=== PATIENT | male | born 1935 | race Caucasian/White ===

== ENCOUNTER 2017-06-02 20:37 | Observation (INO) | payer MEDICARE ==
[~2017-06-02] VITALS: Ht 182.9 cm; Wt 79.5 kg
[~2017-06-02 20:37] MED LIST: ACET325T51 PO; ACYC400T2 PO; CALC600T12 PO; CHOL500011 PO; LEVO500T79 PO; LORA10CA PO; Lactated Ringer's 1,000 ML IV ONE; POLY17PO6 PO; PREG75CA PO; PSYL1CAP3 PO
[2017-06-02 20:51] VITALS: BP 126/75; PULSE 72; RESP 18; O2SAT 100
[2017-06-02 21:53] LABS: BASOPHILS % (AUTO) 2.4 % (0-3); EOSINOPHILS % (AUTO) 0.8 % (0-5); MONOCYTES % (AUTO) 15.5 % (4-12); NEUTROPHILS % (AUTO) 46.8 % (40-74)
--- NOTE | 2017-06-02 21:53 | ED.REPORT ---
HPI-Abd Pain M 40 and Over Date of Service Jun 02, 2017 ED Provider: Marcel Herrera DO Patient is an 82 year old male with a history of myelodysplastic syndrome who presents to the ED reporting that his inguinal hernia popped out at 2000 this evening. Associated symptoms include nausea and vomiting. The patient reports that he has been dealing with this for months and he is normally able to push the hernia back in but was unable to tonight. Patient receives regular blood transfusions due to his myelodysplastic syndrome. Nursing Notes Stated Complaint: ABDOMINAL PAIN, VOMITING, HERNIA OUT Chief Complaint: Male Abdominal Pain Nursing Notes Reviewed: Yes Allergies: Coded Allergies: No Known Allergies (Verified Allergy, Unknown, 06/02/17) Uncoded Allergies: Environmental allergies (Allergy, Mild, 06/14/08) Scheduled Acyclovir (Acyclovir) 400 Mg Tablet 400 MG PO BID Calcium Carbonate (Calcium) 600 Mg Tablet 600 MG PO DAILY Cholecalciferol (Vitamin D3) (Vitamin D3) 5,000 Unit Tablet 5,400 UNIT PO DAILY Levofloxacin (Levofloxacin) 500 Mg Tablet 500 MG PO DAILY Loratadine (Claritin) 10 Mg Capsule 10 MG PO DAILY Pregabalin (Lyrica) 75 Mg Capsule 75 MG PO BID Scheduled PRN Acetaminophen (Acetaminophen) 325 Mg Tablet 325 MG PO Q4H PRN PRN For Pain Polyethylene Glycol 3350 (Miralax) 17 Gm Powd.pack 17 GM PO PRN PRN PRN For Constipation Psyllium Husk/Ca Carbonate (Metamucil Plus Calcium Capsule) 1 Each Capsule 1 EACH PO DAILY PRN PRN For Constipation General Time Seen by MD: 21:52 Chief Complaint Inguinal pain right Hx Obtained From: Patient Arrived By: Walk-in Sudden in Onset?: Yes Onset Occurred: 1 - 4 hours ago Symptom Duration: Since onset Quality: Painful Radiation: : Inguinal right Severity: Current: Pain level 8 out of 10 Similar Sx Previous: Yes Past Medical History Past Medical History myelodysplastic syndrome Smoking History Unknown if Ever Smoker Social History Other Social History: Good social support Ambulatory Status Independent Review of Systems Constitutional: Denies: Chills, Fever Respiratory: Denies: Non-productive cough, Shortness of breath GI: Reports: Abdominal pain, Nausea, Vomiting Complete sys rev & neg: except as marked. Skin: Denies Itching, Denies Rash Physical Exam Initial Vital Signs Vital Signs (First) Date Time Temp Pulse Resp B/P Pulse Ox O2 Delivery O2 Flow Rate FiO2 06/02/17 20:51 37.1 72 18 126/75 100 Room Air Initial VS: Reviewed General/Constitutional: Awake, Alert Distress / Hydration: Positive: Distress moderate actively retching Respiratory / Chest: Atraumatic, Breath sounds NL, Breath sounds = bilat, No respiratory distress Cardiovascular: Heart rate NL, Regular rhythm, Heart sounds NL Abdomen: Atraumatic, Soft Organomegaly / Mass / Hernia: Positive: Hernia inguinal R, Hernia is incarcerated, Hernia is strangulated, Hernia is tender, Hernia not reducible Back: Atraumatic, No CVA tenderness Head / Eyes: Atraumatic, Normocephalic, PERRL, EOMI Skin: Atraumatic, Color NL, No rash, Warm, Dry Neurologic: Oriented X3, Speech NL, No motor deficits, No sensory deficits Upper Extremity / MS: Atraumatic, Inspection NL Lower Extremity / Pelvis / MS: Atraumatic, Inspection NL Psychiatric: Affect NL, Mood NL Interpretation & Diagnostics Lab Results Interpretation Result Diagram: 06/02/17211706/02/172117 Test 06/02/17 21:18 White Blood Count 2.5th/mm3 (3.8-10.1) Red Blood Count 2.46mil/mm3 (4.40-5.80) Hemoglobin 8.7g/dL (13.8-17.2) Hematocrit 25.7% (41.0-50.0) Mean Corpuscular Volume 104.5fL (81-100) Mean Corpuscular Hemoglobin 35.4pg (27.0-35.0) Mean Corpuscular Hemoglobin Concent 33.9% (32.0-37.0) Red Cell Distribution Width 27.6% (12.3-15.4) Platelet Count 34bil/L (150-400) Neutrophils (%) (Auto) 46.8% (40-74) Lymphocytes (%) (Auto) 33.3% (14-46) Monocytes (%) (Auto) 15.5% (4-12) Eosinophils (%) (Auto) 0.8% (0-5) Basophils (%) (Auto) 2.4% (0-3) Sodium Level 140mEq/L (134-144) Potassium Level 4.2mEq/L (3.5-5.2) Chloride Level 102mEq/L (97-108) Carbon Dioxide Level 24mmol/L (18-29) Blood Urea Nitrogen 19mg/dL (8-27) Creatinine 0.91mg/dL (0.76-1.27) Estimat Glomerular Filtration Rate 85mL/min (>59) Glucose Level 138mg/dL (60-99) Lactic Acid Level 1.8mmol/L (0.4-2.0) Calcium Level 8.5mg/dL (8.5-10.1) Magnesium Level 2.0mg/dL (1.6-2.6) Total Bilirubin 1.2mg/dL (0.0-1.2) Aspartate Amino Transf (AST/SGOT) 13U/L (0-50) Alanine Aminotransferase (ALT/SGPT) 9U/L (0-44) Alkaline Phosphatase 94U/L (25-160) Total Protein 5.8g/dL (6.4-8.4) Albumin 3.7g/dL (3.4-5.0) Lipase 26U/L (13-60) Hold Garrison Top Tube Received (Received) CT Abd / Pelvis Interpretation Conclusion: 1. 6.5cm right inguinal hernia contains fluids and loops of small bowel. Strangulation is not excluded. No small bowel obstruction. 2. 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 at 0004 Interpretation / Wet Read by: Interpret - Radiologist Re-Eval/Medical Decision Med Decision/Clinical Course 82-year-old male presents with subacute abdominal pain associated with an incarcerated right inguinal hernia. Hernia spelled out for at least 3-4 hours. He has vomiting and rather extreme pain. On examination he was in moderate distress and actively vomiting. His exam was otherwise nonfocal aside from the right inguinal region. He had a very firm and tender inguinal hernia. We medicated with Dilaudid light him flat. Closed reduction attempts were unsuccessful. Surgical consultation obtained. Plan for the OR for definitive management. Mr. yan does have pancytopenia. He will be transfused platelets to get his platelet count 50,000. The operating room. He has been typed and crossmatched as well. 4 units of blood are available as needed. Time of Eval: 22:35 Re-Evaluation/Progress Note: Patient's hernia was non reducable. Plan for CT and admit to surgery. Patient understands and agrees to plan. All questions were addressed. Consultation : Referral / Consult Name: Isha Monique MD Consulted With: Surgeon Call Returned at: 22:43 Sr Vice President: Will see patient, Agrees with eval, Agrees with plan, Accepts admit Counseled Regarding: Diagnosis, Lab results, Need for admission Discharge & Departure Primary Impression: Incarcerated right inguinal hernia Additional Impression: Pancytopenia Disposition: ADMITTED TO HOSPITAL Vital Signs - All Vital Signs Date Time Temp Pulse Resp B/P Pulse Ox O2 Delivery O2 Flow Rate FiO2 06/02/17 23:50 77 17 140/49 93 Room Air 06/02/17 20:51 37.1 72 18 126/75 100 Room Air )( All Prior VS Reviewed: Yes Condition: Stable Referrals: Parker Shah MD (PCP) Scribe Attestation Portions of this note were transcribed by Adelina Leon. I, Dr. Herrera personally performed the history, physical exam and medical decision-making; I reviewed and confirmed the accuracy of the information in the transcribed note. Signed by: La Correa, 06/02/17 copies to: Parker Shah MD, Todd P DO Jun 02, 2017 21:53 Denice Leon Jun 02, 2017 22:03
[2017-06-02 21:57] LABS: Mean Corpuscular Hemoglobin 35.4 pg (27.0-35.0); Mean Corpuscular Volume 104.5 fL (81-100)
[2017-06-02 22:00] LABS: Platelet Count 34 bil/L (150-400)
[2017-06-02] MEDS ORDERED: HYDROmorphone 0.5 mg/0.5 mL iSecure Syringe IVPUSH ONE ×2 (22:00→23:10)
[2017-06-02] MEDS: Ondansetron 2 mg/mL 2 mL Inj IVPUSH PRN ×2 (22:17→22:44)
[2017-06-02] MEDS ORDERED: HYDROmorphone 1 mg/mL Inj IVPUSH ONE (22:40)
--- NOTE | 2017-06-02 23:38 | PCM.HPANE ---
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), Denies:: Abnormal Airway, Anesthesia Reactions, Difficult Intubation, Fam Malignant Hypertherm, Malignant Hyperthermia Diabetes History Hx Diabetes?: No MRSA MRSA: No Medications Hypertension Medication: No Home Meds Incl Beta Afshin: No Reported Medications Levofloxacin 500 Mg [id number] Mg PO DAILY 04/02/17 Loratadine (Claritin)10 Mg [id number] Mg PO DAILY Ref 0 02/01/17 Pregabalin (Lyrica)75 Mg Lecnzjm59 Mg PO BID 30 Days Ref 0 11/13/16 Psyllium Husk/Ca Carbonate (Metamucil Plus Calcium Capsule)1 Each Capsule1 Each PO DAILY PRN For Constipation 09/07/16 Acetaminophen 325 Mg Lfqigv558 Mg PO Q4H PRN For Pain Ref 0 05/22/16 Cholecalciferol (Vitamin D3) (Vitamin D3)5,000 Unit Tablet5,400 Unit PO DAILY 08/06/15 Calcium Carbonate (Calcium)600 Mg Zyjxac259 Mg PO DAILY 08/06/15 Polyethylene Glycol 3350 (Miralax)17 Gm Powd.pack17 Gm PO PRN PRN For Constipation 05/16/14 Acyclovir 400 Mg Anctys266 Mg PO BID Ref 0 05/16/14 History History of ENT Problems?: No HEENT History: Positive for:: Hearing Problem (NO AIDS "YET") Denies:: Abnormal Airway Difficult Intubation Dysphagia Denture Type: None Teeth Condition: Broken Teeth (several chipped teeth) Hx of Heart Problems?: Yes Cardiovascular History: Denies:: Chest Pain Congestive Heart Failure Hypertension Irregular Heartbeat Pacemaker Valvular Heart Disease Hx of Respiratory Problem?: Yes Respiratory History: Positive for:: Asthma (CHILDHOOD ASTHMA, OCCASIONAL MINOR PROBLEM) Use of C-PAP Machine (has PIERO but doesn't use CPAP) Denies:: COPD Cough Hemoptysis Pneumonia Tuberculosis Hx Neurologic Problems?: Yes Neurological History: Positive for:: Peripheral Neuropathy (numbness in hands and feet) Denies:: CVA TIA Hx of GI Problems?: Yes (strangulated inguinal hernia, nausea/vomiting) Gastrointestinal History: Denies:: Gastroesphageal Reflux Heartburn Hx of Problems?: No Male Hx: Positive for:: Prostate Problems (PROSTATE CA=CURRENT PROBLEM) Denies:: Scrotal Mass Testicular Surgery Skin History: Denies:: History Skin Disorders? Pressure Ulcers Hx Musculoskeletal Problems?: No Musculoskeletal History: Denies:: Joint Replacement Hx of Psycho/Social Problems?: No Psycho Social History: Denies:: Anxiety Hx Depression Hx Surgeries?: Yes (HERNIA REPAIRX2, APPY, TONSIL/ ADDENOIDS) Hx Any Other Health Problems?: Yes Other History: Denies:: Cancer Endocrine Disease Hospitalization Thyroid Disease History Blood Transfusions: Positive for:: Blood Transfusions (s/p regular transfusions for myelodysplastic syndrome) Denies:: Blood Transfuse Reaction Hx Diabetes: No Hx Alcohol Use: NoHx Substance Use: No Smoking Status: Unknown if Ever Smoker Have You Smoked inLast 12 mo: No Stop/Bang Treated for Sleep Apnea?: Yes Do You Have a CPAP Machine?: Yes PIERO Category 1: Yes (1b) Risk Assessment Category Category 1A: Patient has history of documented sleep apnea, and HAS NOT received any narcotic, sedative or anesthesia administration during this stay. Category 1B: Patient has history of documented sleep apnea, and HAS received any narcotic , sedative or anesthesia administration during this stay Category 2: Patient has SUSPECTED Obstructive Sleep Apnea, and HAS received any narcotic , sedative or anesthesia administration during this stay. Category 3: Patient has SUSPECTED Obstructive Sleep Apnea and HAS NOT received narcotic, sedative or anesthesia administration during this stay. Category 4: Outpatient in Procedural Areas with known sleep apnea or who screen positive for High Risk via the STOP/BANG questionnaire. Exam Exam Vital Signs Vital Signs Date Time Temp Pulse Resp B/P Pulse Ox O2 Delivery O2 Flow Rate FiO2 06/02/17 20:51 37.1 72 18 126/75 100 Room Air General Appearance: Alert, Oriented X3, Cooperative, No Acute Distress HEENT/AIRWAY: MP 2, Neck Movement (from, tmd > 3 fb) Lungs: Clear to Auscultation, Normal Air Movement Heart: Exam Unremarkable, Regular Rate/Rhythm, No Murmurs/Rubs/Gallops Meds/Labs/Diagnostics Admission Meds Current Medications Hydromorphone HCl (Dilaudid Inj) 0.5 mg ONCE ONCE IVPUSH Last administered on 06/02/17 22:17; Start 06/02/17 at 22:00; Stop 06/02/17 at 22:01; Status DC Hydromorphone HCl (Dilaudid Inj) 1 mg ONCE ONCE IVPUSH Last administered on 22:44; Start 06/02/17 at 22:40; Stop 06/02/17 at 22:41; Status DC Hydromorphone HCl (Dilaudid Inj) 0.5 mg ONCE ONCE IVPUSH Last administered on 06/02/17 23:10; Start 06/02/17 at 23:10; Stop 06/02/17 at 23:11; Status DC Labs Test 06/02/17 21:18 White Blood Count 2.5th/mm3 (3.8-10.1) Red Blood Count 2.46mil/mm3 (4.40-5.80) Hemoglobin 8.7g/dL (13.8-17.2) Hematocrit 25.7% (41.0-50.0) Mean Corpuscular Volume 104.5fL (81-100) Mean Corpuscular Hemoglobin 35.4pg (27.0-35.0) Mean Corpuscular Hemoglobin Concent 33.9% (32.0-37.0) Red Cell Distribution Width 27.6% (12.3-15.4) Platelet Count 34bil/L (150-400) Neutrophils (%) (Auto) 46.8% (40-74) Lymphocytes (%) (Auto) 33.3% (14-46) Monocytes (%) (Auto) 15.5% (4-12) Eosinophils (%) (Auto) 0.8% (0-5) Basophils (%) (Auto) 2.4% (0-3) Sodium Level 140mEq/L (134-144) Potassium Level 4.2mEq/L (3.5-5.2) Chloride Level 102mEq/L (97-108) Carbon Dioxide Level 24mmol/L (18-29) Blood Urea Nitrogen 19mg/dL (8-27) Creatinine 0.91mg/dL (0.76-1.27) Estimat Glomerular Filtration Rate 85mL/min (>59) Glucose Level 138mg/dL (60-99) Lactic Acid Level 1.8mmol/L (0.4-2.0) Calcium Level 8.5mg/dL (8.5-10.1) Magnesium Level 2.0mg/dL (1.6-2.6) Total Bilirubin 1.2mg/dL (0.0-1.2) Aspartate Amino Transf (AST/SGOT) 13U/L (0-50) Alanine Aminotransferase (ALT/SGPT) 9U/L (0-44) Alkaline Phosphatase 94U/L (25-160) Total Protein 5.8g/dL (6.4-8.4) Albumin 3.7g/dL (3.4-5.0) Lipase 26U/L (13-60) Hold Garrison Top Tube Received (Received) Plan Impression Patient chart reviewed, patient interviewed and anesthestic plan with risks, benefits, and alternatives discussed, and informed consent obtained. NPO per Anesth. Guidelines: Yes (last ate at 1700; but with some obstructive symptoms ) ASA Physical Status: ASA2 Plus Emergency Anesthetic Plan: GA Bene/Risks/Altern/Consents: Yes HP Complete Prior to Induction: Yes Other 1 dose of platelets transfusing on arrival to OR. Erasmo Max MD Jun 02, 2017 23:38
[2017-06-02 23:50] VITALS: BP 140/49; PULSE 77; RESP 17; O2SAT 93
[2017-06-02] MEDS ORDERED: 0.9% Sodium Chloride 250 ML IV ONE (23:50)
[2017-06-03] VITALS (12 sets, daily range): BP systolic 109–167; BP diastolic 45–91; PULSE 65–78; RESP 7–22; O2SAT 94–100
--- NOTE | 2017-06-03 00:27 | CONS ---
[address] [address] CONSULTATION REPORT PATIENT: SCOTT HILL : 1935 MR#: [id number] ADMIT: 06/02/2017 JOB ID: [id number] DATE OF SERVICE: 06/02/2017 CHIEF COMPLAINT: An 82-year-old gentleman with incarcerated right inguinal hernia seen at the request of Marcel Herrera DO. HISTORY OF PRESENT ILLNESS: The patient is an 82-year-old gentleman who has had an umbilical hernia repair and left inguinal hernia repair by Dr. Daljit Sutherland in the past. He has known that he has a right inguinal hernia for the past few months, but he was able to always push it in. With his myelodysplastic syndrome, he has not had much energy of late and he mostly just gets up to the chair. This morning, he was able to have his breakfast. After that, he had some abdominal pain, but then around lunch he had some soup and he seemed to get better. Then, he started having worsening abdominal pain and started throwing up around eight o'clock tonight, and he figured out that his hernia is hard and painful and he is not able to push it back in, prompting him to come into the emergency department. He was given some Dilaudid and the emergency department physicians tried to reduce him by putting his head down and with manual pressure, but they were unable to, and I was asked to see him in consultation. OTHER MEDICAL PROBLEMS: 1. Prostate cancer, treated with implantable radiation seeds. 2. Myelodysplastic syndrome, currently treated by Dr. Alcantara, associated with pancytopenia, especially thrombocytopenia. 3. Obesity. PRIOR OPERATIONS: 1. Left inguinal hernia repair. 2. Umbilical hernia repair. SOCIAL HISTORY: He never smoked. He is here with his and daughter. REVIEW OF SYSTEMS: Positive for nausea and vomiting, neuropathy, weakness, in addition to the abdominal pain. LABORATORY INVESTIGATIONS: WBC 2.5, hemoglobin 8.7, platelet count 34. Glucose 138, lactate 1.8. Normal LFTs. Albumin 3.7, lipase 26. Creatinine 0.91. CT abdomen and pelvis performed June 02, 2017, showed incarcerated small bowel within the right inguinal hernia with enhancing bowel within the hernia. He also has bowel obstruction with a transition point in the incarcerated right inguinal hernia. PHYSICAL EXAMINATION: An 82-year-old gentleman with mild distress. BMI 23.8, temperature 37.1, pulse 72, respiratory rate 18, blood pressure 126/75, saturating 100% on room air. Eyes: Normal pupils, conjunctivae. Ears, nose and throat: Normal external appearance. Neck: No adenopathy. Respiratory: Normal effort, clear to auscultation. Cardiovascular: Regular rate and rhythm. Gastrointestinal: Abdomen is soft with incarcerated right inguinal hernia. I did not attempt to reduce it with him awake given the tenderness and earlier attempts already done in the emergency department. Genitourinary: Normal penile and scrotal complex. Neurologic: No gross deficits. Psych: Alert, appropriate. Musculoskeletal: Normal strength in extremities. ASSESSMENT AND PLAN: Incarcerated right inguinal hernia. We discussed the pathophysiology and treatment rationale for hernias. He could have incarcerated or potentially strangulated bowel. I recommended going to the operating room and attempting reduction under anesthesia. If I am able to reduce it, I will try to watch him and perform a semi-elective repair on his hernia, but if I am not able to reduce it I am going to proceed with an open repair of right inguinal hernia with possible bowel resection as indicated tonight. Discussed the risks, benefits and alternatives, and he and his understand and wish to proceed.
[2017-06-03] MEDS: Piperacillin-Tazo 3.375 Gm Inj 3.375 GM in Dextrose 5% Minibag Plus 50 ML IV ONE ×2 (00:49→01:27)
[2017-06-03] MEDS ORDERED: EPHEDrine Sulfate 50 mg/mL Inj IVPUSH PRN (00:55)
[2017-06-03] MEDS ORDERED: Albuterol 2.5 mg/3 mL Inhalation Solution NEB PRN (00:55)
[2017-06-03] MEDS ORDERED: HYDROmorphone 1 mg/mL Inj IVPUSH PRN (00:55)
[2017-06-03] MEDS ORDERED: Lactated Ringer's 500 ML IV PRN (00:55)
[2017-06-03] MEDS ORDERED: MetoCLOpramide 5 mg/mL 2 mL Inj IVPUSH PRN ×2 (00:55)
[2017-06-03] MEDS ORDERED: Phenylephrine 10,000 mCg/mL Inj IVPUSH PRN (00:55)
[2017-06-03] MEDS ORDERED: fentaNYL-PF 50 mCg/mL 2 mL Inj IVPUSH PRN (00:55)
[2017-06-03] MEDS ORDERED: Dexamethasone 4 mg/mL Inj IVPUSH PRN (00:55)
[2017-06-03] MEDS ORDERED: Lactated Ringer's 1,000 ML IV SCH (00:55)
[2017-06-03] MEDS ORDERED: hydrALAZINE 20 mg/mL Inj IVPUSH PRN (00:55)
[2017-06-03] MEDS ORDERED: Ondansetron 2 mg/mL 2 mL Inj IVPUSH PRN ×2 (00:55)
[2017-06-03] MEDS ORDERED: Atropine 0.4 mg/mL Inj IVPUSH PRN (00:55)
[2017-06-03] MEDS ORDERED: Labetalol 5 mg/mL 4 mL Inj IV PRN (00:55)
[2017-06-03] MEDS ORDERED: Polyethylene Glycol (PEG) 17 Gm Powder PO PRN (00:55)
--- NOTE | 2017-06-03 00:58 | PCM.SURGPO ---
Immediate Operative Note Date of Surgery: Jun 03, 2017 Pre Operative Diagnosis Incarcerated Right Inguinal Hernia Post Operative Diagnosis Incarcerated Right Inguinal Hernia Procedure Manual Reduction of Incarcerated Hernia Surgeon and Packaging Inspector Surgeon: Isha Monique MD Assistants: None Findings Reduced without difficulty once under anesthesia Complications There were no periprocedural complications identified. Surgical Specimen Removed: No Specimen sent to Pathology: No Anesthetic Administered: GA Grafts, Implants: None Output, Estimated Blood Loss: 0 Blood Admin during surgery: No Isha Monique MD Jun 03, 2017 00:58
--- NOTE | 2017-06-03 01:19 | OP ---
[address] [address] OPERATIVE REPORT PATIENT: SCOTT HILL : 1935 MR#: [id number] ADMIT: 06/02/2017 JOB ID: [id number] DATE OF SURGERY: 06/03/2017 SURGEON: Isha Monique MD. PREOPERATIVE DIAGNOSIS(ES): Incarcerated right inguinal hernia. POSTOPERATIVE DIAGNOSIS(ES): Incarcerated right inguinal hernia. PROCEDURE PERFORMED: Manual reduction of right inguinal hernia under anesthesia. COMPLICATIONS: None. CONDITION OF THE PATIENT: Stable. INDICATIONS: The patient is an 82-year-old gentleman with myelodysplastic syndrome and pancytopenias, who came in with incarcerated right inguinal hernia today. He was hemodynamically okay and manual reduction attempted by the emergency department physicians were not successful. After discussing the risks, benefits and alternatives, he was brought to the operating room with a plan to try manual reduction under anesthesia, and if not successful, proceed with an open repair of the hernia with possible bowel resection if indicated. PROCEDURE DETAILS: After smooth induction of general anesthesia, we put him in steep Trendelenburg position, and gentle pressure over the hernia to reduce the edema in the hernia was immediately successful, and I was able to reduce the hernia completely. At this point, we terminated the procedure with plans to observe him in the hospital overnight and advance his diet with plans to electively repair the hernia within the next week.
[2017-06-03] MEDS ORDERED: HYDROmorphone 0.5 mg/0.5 mL iSecure Syringe IVPUSH ONE (01:20)
--- NOTE | 2017-06-03 01:47 | PCM.ANEP1 ---
Post Anesthesia PACU Phase 1 Assessment Date of Service: Jun 03, 2017 Vital Signs Vital Signs Date Time Temp Pulse Resp B/P Pulse Ox O2 Delivery O2 Flow Rate FiO2 06/03/17 01:30 36.6 73 19 132/63 99 Room Air 06/03/17 01:25 72 14 140/67 100 Room Air 06/03/17 01:23 37.1 78 15 162/70 94 Room Air 06/03/17 01:20 73 22 120/65 100 Simple Mask 10 06/03/17 01:15 76 7 119/54 100 Simple Mask 10 06/03/17 01:10 71 7 109/49 100 Simple Mask 10 06/03/17 01:07 36.1 71 7 112/45 100 Simple Mask 10 06/03/17 00:05 37.1 78 15 06/02/17 23:50 77 17 140/49 93 Room Air 06/02/17 20:51 37.1 72 18 126/75 100 Room Air Anesthetic Administered: GA Level of Alertness: Awake, talking QIU's with Equal Strength: Yes Pain: No Pain Scale Score: 0 Nausea or Vomiting: No CV Function & Hydration Stable: Yes Airway Device: none Oxygen Delivery: Room Air Lungs: Clear to Auscultation, Normal Air Movement Dermatome Level: Full Sensation PACU Phase 2 Assessment Complications: No Follow up Care: No Patient Instructions Provided: N/A Erasmo Max MD Jun 03, 2017 01:47
[2017-06-03 02:45] LABS: APPEARANCE,URINE CLEAR (CLEAR,HAZY); COLOR,URINE DARK YELLOW (YELLOW); OCCULT BLOOD,URINE SMALL (NEGATIVE); UROBILINOGEN,URINE NORMAL (NORMAL)
--- NOTE | 2017-06-03 02:57 | NUR ---
Post op Patient arrived to floor from Pacu at 0140. Patient A&OX3. Vitals stable. and daughter by bedside. Patient states he is in no pain and feeling much better than he was previously. Patient denies N/V. Zosyn infusing through peripheral IV. Report given by Crystal LEARY. Care continues.
[2017-06-03] MEDS ORDERED: levoFLOXacin 500 mg Tablet PO SCH (08:30)
[2017-06-03] MEDS ORDERED: Acyclovir 400 mg Tablet PO SCH (08:30)
[2017-06-03] MEDS ORDERED: Calcium Carbonate (Oyster Shell) 500 mg Tablet PO SCH (08:30)
--- NOTE | 2017-06-03 08:36 | DRSVH ---
PROCEDURE: CT ABDOMEN AND PELVIS WITH CONTRAST ([id number]) INDICATIONS: hernia pain TECHNIQUE: After the administration of intravenous contrast, 5 mm thick sections acquired from the diaphragm to the symphysis. 5 mm coronal and sagittal reformats were acquired. For radiation dose reduction, the following was used: automated exposure control, adjustment of mA and/or kV according to patient siz e. COMPARISON: [facility] [place] , CT, ABD/PELVIS W&WO CON ([facility] 07/14/2011, 8:28. FINDINGS: Image quality: Excellent. ABDOMEN: Lung bases: Lung bases are clear. Heart size is normal. There is a small hiatal hernia Solid organs: Liver and spleen are normal in size and enhancement. Gallbladder is within normal james its. Biliary system is non dilated. Pancreas enhances normally. No adrenal nodules. Kidneys demon strate normal size and enhancement, without hydronephrosis. Bilateral parapelvic cysts are present. Peritoneum and bowel: Bowel loops demonstrate normal wall thickness and caliber except within the ri ght inguinal hernia.. No free fluid or air. Nodes and vessels: No retroperitoneal or mesenteric adenopathy by size criteria. Aorta and inferior vena cava are normal in size. Atherosclerotic calcifications are present. No aneurysm. The right ext ernal iliac artery shows dissection with active flow in both channels. This is approximately 4-5 cm i n length beyond the bifurcation of the common iliac and ending prior to the common femoral artery. Miscellaneous: No ventral hernias. PELVIS: Genitourinary: Bladder wall thickness is normal. Prostate is mildly enlarged with multiple seeds wi thin it. Miscellaneous: There is a right inguinal hernia with a bowel loop within it. No evidence for obstruct ion of the loops entering or exiting there is slight prominence of the loops within. There is a gener ous amount of fluid within the hernia sac as well. Bones: No suspicious bony lesions. No vertebral body compression fractures. IMPRESSION: 1. Right inguinal hernia with prominent small bowel loops and fluid within it. Loops within the herni a sac are slightly larger than those entering and exiting early ischemic change cannot be excluded. N o obstruction is seen. 2. Multiple prostate seeds. No adenopathy was bony sclerotic lesions are seen. 3. Splenomegaly with spleen measuring approximately 15.6 cm in length. 4. Right external iliac artery dissection. Dictated by: Shawn Maria M.D. on 06/03/2017 at 8:14 this report corresponds to the findings of e preliminary NSR report. Approved by: Shawn Maria M.D. on 06/03/2017 at 8:35
--- NOTE | 2017-06-03 11:57 | NUR ---
Social Work Note - Initial Assessment Mauri Vanegas is a 82 yr old admitted for incarcerated hernia. EMR reviewed: Pt has [employer] plan of [place] , his PCP is Dr Shah. No LTC or [facility] insurance. No DPOA - Paperwork given to pt and BUSINESS CONTINUITY MANAGER provided education with teach back. No Readmit risk available. See attached CM initial assessment. BUSINESS CONTINUITY MANAGER met with pt - Pt's also in the room. BUSINESS CONTINUITY MANAGER introduced D/C planning and explained SW role. Pt lives at home with his in [place]. He has support at baseline - Uses a 4WW and 2WW at baseline, shower chair. He is in treatment at [facility], [place]. He gets assistance with meals, chores and medications at home. Pt states that he is feeling much better - anticipates that he may need surgery in the future. He has used [facility] in the past and would consider using them in the future but believes he is back to baseline and with family support can manage at home. Assessment: Pt who lives at home with a lot of family support - feels comfortable with him coming home. Pt may benefit from Home Health - BUSINESS CONTINUITY MANAGER will follow for recommendations. Plan: Home with in [facility] - BUSINESS CONTINUITY MANAGER will follow for dc needs as they are identified. GUILLE HahnSW Addendum: 06/03/17 at 1202 by KINGA BROWN SS Amended: Links added.
--- NOTE | 2017-06-03 13:39 | PCM.PNSURG ---
Subjective Date of Service: Jun 03, 2017 Visit Information: Reason for Visit Incarcerated Inguinal Hernia, Pancytopenia Surgery/Surgery Date Post-Op Day # Date of Admission: Jun 02, 2017 at 23:53 Hospital Day #1 Subjective: Comfortable after hernia was reduced with general anesthesia late last night. Eating his normal amounts of food with no nausea or vomiting. Passing flatus but has not had a bowel movement, generally has a bowel movement in the evenings. Voiding without difficulty. Has not been out of bed since returning from the operating room related to weakness associated with myelodysplastic syndrome. Seldom ambulates at home and when he does uses a front wheel walker. Postop General: No Complaints Gastrointestinal: Tolerating Oral Feedings, No N/V, Passing Flatus Pain Management: No or Minimal Pain Postop Activity: Other (has not ambulated) Objective Vital Sign- Last 8 Hours Date Time Temp Pulse Resp B/P Pulse Ox O2 Delivery O2 Flow Rate FiO2 06/03/17 12:37 36.6 68 18 112/47 99 Room Air 06/03/17 09:51 36.4 65 22 128/65 99 Room Air 06/03/17 06:07 36.4 65 22 133/64 100 Room Air Intake and Output- Last 8 Hour 06/03/17 Cumulative From/Thru 07:00 06/02/17 00:32 - 06/03/17 04:22 Intake Total 60 ml 529 ml Output Total 0 ml 0 ml Balance 60 ml 529 ml IV Total 60 ml 260 ml Platelets 269 ml Estimated Blood Loss 0 ml 0 ml General: Alert, Cooperative, No Acute Distress Lungs: Clear to Auscultation Heart: Regular Rate/Rhythm, No Murmurs/Rubs/Gallops Abdomen: Other (large right groin hernia is palpated without incarceration) Extremities: Thigh&Calf Soft/Nontender Neuro: Normal Speech Catheters: None Result Diagram: 06/02/17211706/02/172117 Assessment & Plan Impression Primary diagnoses: 1. Right inguinal hernia 2. Thrombocytopenia Other chronic conditions: 1. 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 2. History of prostate cancer treated with seed implant radiation. Problems: Plan The patient will be discharged from the hospital today. He will return to Day Surgery on June 18 for elective repair of right inguinal hernia by Dr. Monique. Surgical consent for right inguinal hernia repair with mesh is signed and witnessed after risks, alternatives, and benefits were explained and discussed. Resuscitation Status: CPR: Attempt Resuscitation copies to: Parker Shah MD, Fred H PA-C Jun 03, 2017 13:39
--- NOTE | 2017-06-03 13:43 | PCM.DISURG ---
Surgical Discharge Instruction Date of Service Jun 03, 2017 Dates of Hospitalization Date of Hospital Admission Jun 02, 2017 at 23:53 Providers Admitting Physician: Isha Monique MD Primary Care Physician: Parker Shah MD Attending Physician: Isha Monique MD Discharge Diagnosis Discharge Diagnosis Primary diagnoses: 1. Right inguinal hernia 2. Thrombocytopenia Other chronic conditions: 1. 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 2. History of prostate cancer treated with seed implant radiation. Post Operative diagnosis Same Diet Discharge Diet: No restrictions Activity Discharge Activity-General: No restrictions Additional Instructions Discharge Instructions Report to Day Surgery on June 18 at 11 AM for scheduled elective right inguinal hernia repair with Dr. Monique. Follow Up Plan Call your provider for: Other (recurrent hernia incarceration that you are unable to reduce) Juan Luis Cardenas PA-C Jun 03, 2017 13:43
--- NOTE | 2017-06-03 13:47 | PCM.DC.SUR ---
Discharge Summary Date of Service: Jun 03, 2017 Date of Hospital Admission: Jun 02, 2017 at 23:53 Date of Operation(s): 06/03/2017 Date of Discharge: 06/03/2017 Diagnosis at Time of Discharge Primary diagnoses: 1. Right inguinal hernia 2. Thrombocytopenia Other chronic conditions: 1. 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 2. History of prostate cancer treated with seed implant radiation. Problems: Operation Manual reduction of incarcerated right inguinal hernia under anesthesia Brief History and Physical: The patient is an 82-year-old gentleman with myelodysplastic syndrome and pancytopenias, who came in with incarcerated right inguinal hernia. He was hemodynamically okay and manual reduction attempted by the emergency department physicians were not successful. Consultants: None Hospital Course: The patient was admitted and underwent the above-mentioned operation without complication. He was discharged from the hospital later on the same day (his operation was at midnight--- discharge was nearly 14 hours later). Pathology: None Disposition: The patient was discharged to home with his . Follow-up Plan: He will return to Day Surgery on June 18 for elective repair of right inguinal hernia. Acetaminophen (Acetaminophen) 325 Mg Tablet 325 MG PO Q4H PRN PRN For Pain ( Reported) Acyclovir (Acyclovir) 400 Mg Tablet 400 MG PO BID (Reported) Calcium Carbonate (Calcium) 600 Mg Tablet 600 MG PO DAILY (Reported) Cholecalciferol (Vitamin D3) (Vitamin D3) 5,000 Unit Tablet 5,400 UNIT PO DAILY (Reported) Levofloxacin (Levofloxacin) 500 Mg Tablet 500 MG PO DAILY (Reported) Loratadine (Claritin) 10 Mg Capsule 10 MG PO DAILY (Reported) Polyethylene Glycol 3350 (Miralax) 17 Gm Powd.pack 17 GM PO PRN PRN PRN For Constipation (Reported) Pregabalin (Lyrica) 75 Mg Capsule 75 MG PO BID (Reported) Psyllium Husk/Ca Carbonate (Metamucil Plus Calcium Capsule) 1 Each Capsule 1 EACH PO DAILY PRN PRN For Constipation (Reported) copies to: Parker Shah MD, Fred H PA-C Jun 03, 2017 13:47
--- NOTE | 2017-06-03 14:57 | NUR ---
Case Management: [place] and Medicare Part D pamphlet delivered and explained to pt. and spouse. Signed original placed in chart. Copy left at bedside. Flores Dunham RN
[2017-06-03] MEDS ORDERED: fentaNYL-PF 50 mCg/mL 2 mL Inj ONE (15:14)
[2017-06-03] MEDS ORDERED: Propofol 10,000 mCg/mL 20 mL Inj ONE (15:14)
[2017-06-03] MEDS ORDERED: Succinylcholine Chloride 20 mg/mL 5 mL Inj ONE (15:14)
[2017-06-03] MEDS ORDERED: Ondansetron 2 mg/mL 2 mL Inj ONE (15:14)
--- NOTE | 2017-06-03 15:21 | NUR ---
Discharge Pt discharged at 1508 in w/c to private vehicle with . Pt has no pain, N/V or increased abd distention. Educated on s/s of when to return to ED. Pt has surgery scheduled for June 18 and is aware. VSS, A&O x 3, QIU. Two PIV's removed intact and pressure held for extra time due to low platelets. Pt educated that they should not bleed further and if they do, to hold pressure. Pt has care notes and discharge instructions, no new rx's. All questions answered and all belongings with pt.
== END 2017-06-03 15:15 | disposition home or self-care (01) ==
LOC: SED 20:37 → INTOOBSV 23:53 → PCC 23:53 → OSC 06-03 00:06
PROVIDERS: ADMIT Student in an Organized Health Care Education/Training Program; ATTEND Student in an Organized Health Care Education/Training Program
DX: K40.30 Unilateral inguinal hernia, with obstruction, without gangrene, not specified as recurrent (principal); D46.9 Myelodysplastic syndrome, unspecified; D69.6 Thrombocytopenia, unspecified; E66.9 Obesity, unspecified; Z85.46 Personal history of malignant neoplasm of prostate; Z79.899 Other long term (current) drug therapy
CPT/HCPCS: 36415; 49999; 74177; 80053; 81000; 83605; 83690; 83735; 85025; 86922; 96374; 96375; 96376; 99285; G0378; J0330; J1170; J2405; J2543; J2704; J3010; J7050; J7120; Q9967

== ENCOUNTER → 2017-06-17 | Day surgery (SDC) | payer MEDICARE ==
--- NOTE | 2017-06-16 13:22 | PCM.ANEPRE ---
Anesthesia Pre-Op Review Reason for Review: pancytopenia hx- platelet counts Anesthesia Recommendations: Proceed with Procedure Additional Comments 82 yo man for IHR by dr nicholson 06/17. Has myelodysplastic syndrome and pancytopenia; followed closely by dr Alcantara who saw him today, 06/16; hgb was 8 so patient receiving on unit prbc today and 500ml NS ; Dr nicholson has also ordered a 6pack of platelets for tomorrow morning. Pt has fatigue and uses a wheelchair. Dr Alcantara feels his fatigue is appropriate for his condition and feels he is as optimized as possible for the hernia surgery; hernia was incarcerated on june 03 and was reduced under anesthesia which was uneventful. Ok to proceed with usual DOS evaluation and am platelet transfusion. Chart Reviewed by: Shantanu Bruno MD, MD Jun 16, 2017 13:22
[~2017-06-17] VITALS: Ht 182.9 cm; Wt 79.7 kg
[2017-06-17] VITALS (10 sets, daily range): BP systolic 119–142; BP diastolic 51–65; PULSE 68–77; RESP 13–17; O2SAT 96–100
[~2017-06-17] MED LIST changes: +Bupivacaine-MPF 0.5% 30 mL Inj INFILTRATE ONE; +CeFAZolin Inj 2 GM in IV Premix 1 EACH IV ONE; +Dexamethasone 4 mg/mL Inj IVPUSH PRN; +EPHEDrine Sulfate 50 mg/mL Inj IVPUSH PRN; +HYDROmorphone 1 mg/mL Inj IVPUSH PRN; +Lactated Ringer's 1,000 ML IV SCH; +Lactated Ringer's 500 ML IV PRN; +MetoCLOpramide 5 mg/mL 2 mL Inj IVPUSH PRN; +OXYC-474 PO; +Ondansetron 2 mg/mL 2 mL Inj IVPUSH PRN; +Ondansetron 2 mg/mL 2 mL Inj ONE; +Phenylephrine 10,000 mCg/mL Inj IVPUSH PRN; +Propofol 10,000 mCg/mL 20 mL Inj ONE; +fentaNYL-PF 50 mCg/mL 2 mL Inj IVPUSH PRN
[2017-06-17 06:15] LABS: EOSINOPHILS % (AUTO) 2.3 % (0-5); MONOCYTES % (AUTO) 21.1 % (4-12); Mean Corpuscular Hemoglobin 36.4 pg (27.0-35.0); NEUTROPHILS % (AUTO) 39.7 % (40-74)
--- NOTE | 2017-06-17 07:21 | PCM.HPANE ---
Patient Data Surgeon Admitting Provider: Attending Provider:Isha Monique MD Primary Care Physician:Parker Shah MD Other Provider:Jerson Vicente Anesthesia Reason for Visit Right Inguinal Hernia Ht/WT & BMI Height (Feet): 6 Height (Inches): 0.00 Weight (Kilograms): 79.700 Body Mass Index 23.00 Allergies Coded Allergies: No Known Allergies (Verified Allergy, Unknown, 06/10/17) Uncoded Allergies: Environmental allergies (Allergy, Mild, 06/14/08) Past Anesthesia History Anesthesia History: Positive for:: Fam Anesthesia Reaction (sister- during exploratory abdominal surgery- heart stopped), Denies:: Abnormal Airway, Anesthesia Reactions, Difficult Intubation, Fam Malignant Hypertherm, Malignant Hyperthermia Diabetes History Hx Diabetes?: No MRSA MRSA: No Medications Hypertension Medication: No Home Meds Incl Beta Afshin: No Reported Medications Levofloxacin 500 Mg [id number] Mg PO DAILY 04/02/17 Loratadine (Claritin)10 Mg Tzkhcyj57 Mg PO DAILY Ref 0 02/01/17 Pregabalin (Lyrica)75 Mg Nninnne09 Mg PO BID 30 Days Ref 0 11/13/16 Psyllium Husk/Ca Carbonate (Metamucil Plus Calcium Capsule)1 Each Capsule1 Each PO DAILY PRN For Constipation 09/07/16 Acetaminophen 325 Mg Hmwllw710 Mg PO Q4H PRN For Pain Ref 0 05/22/16 Cholecalciferol (Vitamin D3) (Vitamin D3)5,000 Unit Tablet5,400 Unit PO DAILY 08/06/15 Calcium Carbonate (Calcium)600 Mg Rmqsmo629 Mg PO DAILY 08/06/15 Polyethylene Glycol 3350 (Miralax)17 Gm Powd.pack17 Gm PO PRN PRN For Constipation 05/16/14 Acyclovir 400 Mg Gpbcuf310 Mg PO BID Ref 0 05/16/14 History History of ENT Problems?: Yes HEENT History: Positive for:: Cataracts (forming - no surgery yet) Hearing Problem Denies:: Abnormal Airway Difficult Intubation Dysphagia Glaucoma Sinus Problem Denture Type: None Teeth Condition: Broken Teeth Hx of Heart Problems?: No Cardiovascular History: Positive for:: Heart Murmur Denies:: AICD Atrial Fibrillation Cardiac Surgery Chest Pain Congestive Heart Failure Edema Hypertension (runs "low" on blood pressure routinely) Irregular Heartbeat Pacemaker Thrombophlebitis Valvular Heart Disease Other Cardiac History: pancytopenia, myelodisplastic syndrome- sees Dr Alcantara - will be seen day prior to optimize condition for surgery- last platelet count 54 on 06/07/17 Hx of Respiratory Problem?: Yes Respiratory History: Positive for:: Dyspnea (with exertion.) 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 Pressure Ulcers Hx Musculoskeletal Problems?: No Musculoskeletal History: Positive for:: Osteoarthritis Denies:: Back Injury Fibromyalgia Joint Replacement Musculoskeletal Trauma Myasthenia Gravis Systemic Lupus Hx of Psycho/Social Problems?: No Psycho Social History: Denies:: Anxiety Hx Depression Hx Surgeries?: Yes (appe, Hernia surgery x2.) Hx Any Other Health Problems?: Yes Other History: Positive for:: Cancer (MDS, and prostate cancer) Hospitalization Denies:: Endocrine Disease Thyroid Disease History Blood Transfusions: Positive for:: Accept Blood Products? Blood Transfuse Reaction (Once, reaction to donors antigens. Now is pretreated with tylenol/benadryl) Blood Transfusions Hx Diabetes: No Hx Alcohol Use: NoHx Substance Use: No Smoking Status: Never Smoker Have You Smoked inLast 12 mo: No Stop/Bang Treated for Sleep Apnea?: No Do You Have a CPAP Machine?: Yes S-Snoring: Do You Snore Loudly: No T-Tired: feel tired, fatigued: Yes O-Obsered: Observed not breath: No P-Blood Pressure: treated: No B- Body Mass Index > 35 kg/m2: No A- Age over 50: Yes N- Neck Large Circumference: No G- Gender Male: Yes PIERO Total Score: 3 PIERO Risk Assessment: High Risk, =/>3 Yes Risk Assessment Category Category 1A: Patient has history of documented sleep apnea, and HAS NOT received any narcotic, sedative or anesthesia administration during this stay. Category 1B: Patient has history of documented sleep apnea, and HAS received any narcotic , sedative or anesthesia administration during this stay Category 2: Patient has SUSPECTED Obstructive Sleep Apnea, and HAS received any narcotic , sedative or anesthesia administration during this stay. Category 3: Patient has SUSPECTED Obstructive Sleep Apnea and HAS NOT received narcotic, sedative or anesthesia administration during this stay. Category 4: Outpatient in Procedural Areas with known sleep apnea or who screen positive for High Risk via the STOP/BANG questionnaire. Exam Exam Vital Signs Vital Signs Date Time Temp Pulse Resp B/P Pulse Ox O2 Delivery O2 Flow Rate FiO2 06/17/17 05:53 36.5 77 17 142/65 100 Room Air General Appearance: Oriented X3 HEENT/AIRWAY: MP 2 Lungs: Normal Air Movement Heart: Regular Rate/Rhythm Meds/Labs/Diagnostics Admission Meds Current Medications Lactated Ringer's (Lr) 1,000 ml @ ud STK-MED ONCE IV Last administered on 06/17t 05:39; Start 06/17/17 at 05:39; Stop 06/17/17 at 05:40; Status DC Labs Test 06/17/17 06:04 Plan Impression Patient chart reviewed, patient interviewed and anesthestic plan with risks, benefits, and alternatives discussed, and informed consent obtained. NPO per Anesth. Guidelines: Yes ASA Physical Status: ASA3 Severe Disease Anesthetic Plan: GA Bene/Risks/Altern/Consents: Yes HP Complete Prior to Induction: Yes Alexander Nelson MD Jun 17, 2017 07:21
[2017-06-17 07:58] LABS: Platelet Count 37 bil/L (150-400)
--- NOTE | 2017-06-17 10:25 | PCM.SURGPO ---
Immediate Operative Note Date of Surgery: Jun 17, 2017 Pre Operative Diagnosis Right inguinal hernia Post Operative Diagnosis Open Right inguinal hernia repair with mesh Procedure Open right inguinal hernia repair with mesh Surgeon and Groundskeeper Surgeon: Isha Monique MD Assistants: FLOR Silvestre & Jess Teague DO Findings Large indirect inguinal hernia with weak floor Complications There were no periprocedural complications identified. Surgical Specimen Removed: No Specimen sent to Pathology: No Anesthetic Administered: GA Grafts, Implants: Implants-See Implant Record Output, Estimated Blood Loss: 2 Blood Admin during surgery: Yes-See Blood Administration Record (Platelets) Attending Statement Truck Trailer Final Inspector listed was medically necessary for the successful completion of the case Isha Monique MD Jun 17, 2017 10:25
--- NOTE | 2017-06-17 11:54 | PCM.ANEP1 ---
Post Anesthesia PACU Phase 1 Assessment Vital Signs Vital Signs Date Time Temp Pulse Resp B/P Pulse Ox O2 Delivery O2 Flow Rate FiO2 06/17/17 11:34 72 16 136/51 96 Room Air 06/17/17 11:27 76 15 128/63 96 Room Air 06/17/17 11:15 36.9 74 14 130/56 96 Room Air 06/17/17 11:02 74 16 131/58 97 Room Air 06/17/17 10:51 71 17 129/61 100 Room Air 06/17/17 10:45 72 13 125/61 100 Simple Mask 10 06/17/17 10:40 71 17 120/59 100 Simple Mask 10 06/17/17 10:35 36.4 72 17 119/55 100 Simple Mask 10 06/17/17 05:53 36.5 77 17 142/65 100 Room Air Anesthetic Administered: GA Level of Alertness: Awake, talking Pain: No Nausea or Vomiting: No CV Function & Hydration Stable: Yes Airway Device: Lungs: Normal Air Movement PACU Phase 2 Assessment Patient Instructions Provided: N/A Alexander Nelson MD Jun 17, 2017 11:54
--- NOTE | 2017-06-17 19:35 | OP ---
[address] [address] OPERATIVE REPORT PATIENT: SCOTT HILL : 1935 MR#: [id number] ADMIT: 06/17/2017 JOB ID: [id number] DATE OF SURGERY: 06/17/2017 PREOPERATIVE DIAGNOSIS(ES): Right inguinal hernia, previously incarcerated. POSTOPERATIVE DIAGNOSIS(ES): Right indirect inguinal hernia. PROCEDURE PERFORMED: Open repair of right indirect inguinal hernia with mesh. SURGEON: Isha Monique MD. MANAGER TARGET: Shai Herrera PA-C and Jess Teague DO. INDICATIONS: The patient is an 82-year-old gentleman who had an umbilical hernia repair and left inguinal hernia repair by Dr. Daljit Sutherland, the past. He has known that he has a right inguinal hernia for the past few months, but he was always able to push it in. I saw him on June 02, 2017 when he presented with acute incarceration. The emergency department physicians were unable to reduce it, but when we took him to the operating room under anesthesia, it reduced without too much difficulty. I decided to delay his operation out of the acute setting and after discussing the risks, benefits, and alternatives, he is brought back today for open repair of right inguinal hernia with mesh. He was given preoperative antibiotics and platelets were being transfused at the time of the incision. PROCEDURE DETAILS: He was placed in supine position. His right groin was prepped and draped in the usual sterile fashion. Surgical time-out was undertaken using safety checklist, and all were in agreement. I began by dividing skin and subcutaneous tissue and getting down to external oblique aponeurosis. I then opened the external oblique aponeurosis to the external inguinal ring and dissected the aponeurosis free from the spermatic cord. I then encircled the cord with a [place] drain and examined the floor which appeared weak, but no obvious herniated contents were seen. I then opened the cord and found an indirect sac densely adherent to cord structures which I carefully dissected down to the deep inguinal ring and then reduced the sac into the abdominal cavity. He did have a large cord lipoma, but it appeared to be intimately adherent to his cord structures, so I decided to leave it alone. At that point, I cleared the inguinal floor and reinforced the floor with appropriately cut 3 x 6 Marlex mesh sutured to the pubic tubercle inferomedially, shelving edge of the inguinal ligament inferiorly and the rectus abdominis medially. After I placed the mesh, I did notice a little bit of oozing in the surgical field, and I held some pressure, and after that I actually obtained FloSeal and applied it for additional hemostasis. I created the deep inguinal ring between the leaves of the mesh laterally. After that, I closed the external oblique aponeurosis with running 3-0 Vicryl and closed the Rogerio's with interrupted 3-0 Vicryl and skin with 4-0 Monocryl. Steri-Strips and sterile dressing were applied. Patient was recovered from anesthesia and was taken to the recovery room in a stable condition. ROBSON
== END | disposition home or self-care (01) ==
LOC: SAS 05:27
PROVIDERS: ATTEND Student in an Organized Health Care Education/Training Program
DX: K40.30 Unilateral inguinal hernia, with obstruction, without gangrene, not specified as recurrent (principal)
CPT/HCPCS: 36415; 49507; 85025; C1781; J0690; J2405; J2704; J7120

== ENCOUNTER 2017-07-05 16:20 | Inpatient (IN) | payer MEDICARE ==
[~2017-07-05] VITALS: Ht 182.9 cm; Wt 79.5 kg
[~2017-07-05 16:20] MED LIST changes: -Bupivacaine-MPF 0.5% 30 mL Inj INFILTRATE ONE; -CeFAZolin Inj 2 GM in IV Premix 1 EACH IV ONE; -Dexamethasone 4 mg/mL Inj IVPUSH PRN; -EPHEDrine Sulfate 50 mg/mL Inj IVPUSH PRN; -HYDROmorphone 1 mg/mL Inj IVPUSH PRN; -Lactated Ringer's 1,000 ML IV ONE; -Lactated Ringer's 1,000 ML IV SCH; -Lactated Ringer's 500 ML IV PRN; -MetoCLOpramide 5 mg/mL 2 mL Inj IVPUSH PRN; -OXYC-474 PO; -Ondansetron 2 mg/mL 2 mL Inj IVPUSH PRN; -Ondansetron 2 mg/mL 2 mL Inj ONE; -Phenylephrine 10,000 mCg/mL Inj IVPUSH PRN; -Propofol 10,000 mCg/mL 20 mL Inj ONE; -fentaNYL-PF 50 mCg/mL 2 mL Inj IVPUSH PRN
[2017-07-05 17:04] VITALS: BP 122/67; PULSE 81; RESP 16; O2SAT 99
[2017-07-05 18:50] VITALS: BP 114/67; PULSE 87; RESP 20; O2SAT 94
[2017-07-05] MEDS ORDERED: 0.9% Sodium Chloride 250 ML IV ONE (20:25)
[2017-07-05 20:34] VITALS: BP 122/47; PULSE 91; RESP 21; O2SAT 98
[2017-07-05 20:49] LABS: BASOPHILS % (AUTO) 0.6 % (0-3); EOSINOPHILS % (AUTO) 0.6 % (0-5); MONOCYTES % (AUTO) 21.3 % (4-12); Mean Corpuscular Hemoglobin 35.7 pg (27.0-35.0); Mean Corpuscular Volume 107.6 fL (81-100); NEUTROPHILS % (AUTO) 56.5 % (40-74)
--- NOTE | 2017-07-05 21:02 | ED.REPORT ---
HPI-General Illness Date of Service Jul 05, 2017 ED Provider: Dilshad Booth MD An 82 year old male with fairly significant myelodysplastic syndrome on chemotherapy and chronic pancytopenia with extensive support with growth factors , transfusionists and intermittent Vidaza treatment presents to the ED with weakness that began this afternoon. Dr. Alcantara sent the patient to the ED for a transfusion after patient's lab work in clinic revealed Plt count of 13 associated with significant fatigue. He denies any chest pain, SOB, nausea, vomiting, hematochezia, hematuria, or unilateral leg swelling. Current medication list includes 400mg acyclovir bid and 500 mg Levofloxacin bid. Nursing Notes Stated Complaint: LOW BLOOD, SENT BY Chief Complaint: General Complaint Nursing Notes Reviewed: Yes ([employer] not reconciled ) Allergies: Coded Allergies: No Known Allergies (Verified Allergy, Unknown, 07/05/17) Uncoded Allergies: Environmental allergies (Allergy, Mild, 06/14/08) Scheduled Acyclovir (Acyclovir) 400 Mg Tablet 400 MG PO BID Calcium Carbonate (Calcium) 600 Mg Tablet 600 MG PO DAILY Cholecalciferol (Vitamin D3) (Vitamin D3) 5,000 Unit Tablet 5,400 UNIT PO DAILY Levofloxacin (Levofloxacin) 500 Mg Tablet 500 MG PO DAILY Loratadine (Claritin) 10 Mg Capsule 10 MG PO DAILY Pregabalin (Lyrica) 75 Mg Capsule 75 MG PO BID Scheduled PRN Acetaminophen (Acetaminophen) 325 Mg Tablet 325 MG PO Q4H PRN PRN For Pain Polyethylene Glycol 3350 (Miralax) 17 Gm Powd.pack 17 GM PO PRN PRN PRN For Constipation Psyllium Husk/Ca Carbonate (Metamucil Plus Calcium Capsule) 1 Each Capsule 1 EACH PO DAILY PRN PRN For Constipation General Time Seen by MD: 20:20 Chief Complaint Weakness Hx Obtained From: Patient Arrived By: Walk-in Sudden in Onset?: No Onset Occurred: 5 - 8 hours ago Symptom Duration: Since onset Associated with: Denies: Chest pain, Nausea, Shortness of breath, Vomiting Pertinent Negative: Pt denies other symptoms Recent Healthcare: No recent hospitalization, Recent doctor visit Similar Sx Previous: Yes Past Medical History Past Medical History Myelodysplastic syndrome Chronic pancytopenia Neuropathy Past Surgical History None reported. Smoking History Never Smoker Social History Other Social History: Good social support, , Local resident Ambulatory Status Independent Review of Systems Full Review of Systems Constitutional: Reports: Fatigue Respiratory: Denies: Shortness of breath Cardiovascular: Denies: Chest pain GI: Denies: Hematochezia, Nausea, Vomiting Male: Denies Hematuria Musculoskeletal: Denies: Extremity swelling Neurologic: Reports: Weakness Complete sys rev & neg: except as marked. Physical Exam Vital Signs Vital Signs Date Time Temp Pulse Resp B/P Pulse Ox O2 Delivery O2 Flow Rate FiO2 07/05/17 20:34 91 21 122/47 98 Room Air 07/05/17 18:50 36.9 87 20 114/67 94 Room Air 07/05/17 17:04 36.6 81 16 122/67 99 Room Air Initial VS: Reviewed, Vital signs normal Neck: Supple, Non-tender, Full range of motion Extremities: Vascular intact, Neuro intact, No swelling, No tenderness Neurologic: Alert, Oriented, Nonfocal Psychiatric: Mood/affect normal, Behavior normal, Normal thought content General/Constitutional: Awake, Alert Appearance / Presentation: Positive: Cachectic, Pale GENERAL: Appears fatigued Head / Eyes: Atraumatic, Normocephalic, PERRL Respiratory / Chest: Atraumatic, Breath sounds NL, Breath sounds = bilat, No respiratory distress Cardiovascular: Heart rate NL, Regular rhythm, Heart sounds NL Heart Rate / Rhythm: Negative: Tachycardia Abdomen: Atraumatic, Soft, Non-tender Skin: Atraumatic, No rash Interpretation & Diagnostics Lab Results Interpretation Result Diagram: 07/05/172038 Test 07/05/17 19:00 07/05/17 20:39 Hold Urine Received (Received) White Blood Count 3.5th/mm3 (3.8-10.1) Red Blood Count 1.71mil/mm3 (4.40-5.80) Hemoglobin 6.1g/dL (13.8-17.2) Hematocrit 18.4% (41.0-50.0) Mean Corpuscular Volume 107.6fL (81-100) Mean Corpuscular Hemoglobin 35.7pg (27.0-35.0) Mean Corpuscular Hemoglobin Concent 33.2% (32.0-37.0) Red Cell Distribution Width 28.7% (12.3-15.4) Platelet Count 14bil/L (150-400) Neutrophils (%) (Auto) 56.5% (40-74) Lymphocytes (%) (Auto) 17.0% (14-46) Monocytes (%) (Auto) 21.3% (4-12) Eosinophils (%) (Auto) 0.6% (0-5) Basophils (%) (Auto) 0.6% (0-3) Lab Results Interpretation: CBC pancytopenia, progressive (but not appreciably changed from outpatient labs earlier today) For CMP please see outpatient labs from earlier today ECG Interpretation ECG Interpretation: Sinus Rhythm Rate 90 Low , extremity leads Time: 20:43 Interpreted by: ED physician Re-Eval/Medical Decision Med Decision/Clinical Course This is an 82-year-old male who is on chemotherapy for myelodysplastic syndrome , as required transfusions for subsequent pancytopenia is, who had blood work done at the oncology office that return with worsening anemia and a crit of 19, platelet count of 13-and so was sent to the ED for admission for transfusion. His only complaint is profound fatigue, but he denies other issues. He denies any clinical bleeding, he denies chest pain, shortness of breath, but reports a complete loss of energy. On exam the patient's profoundly pale, but otherwise in no distress. He is hemodynamically normal. EKG reveals no ischemia. Lab work was obtained prior to arrival in the department is reviewed. Patient is being typed and crossed, the plan is to unit transfusion of PRBCs, and a sixpack of platelets. She is being admitted for the transfusions continued care. Source of Hx: Old records Time of Eval: 21:15 Patient Status: Condition improved Re-Evaluation/Progress Note: Patient is informed of his current results and the plan to admit for transfusion. All questions about the intended treatment plan are addressed. Patient understands and agrees with the plan. Consultation : Referral / Consult Name: Zhou Callahan MD Consulted With: Hospitalist Call Returned at: 20:55 Softball Core Molder: Will see patient, Agrees with eval, Agrees with plan, Accepts admit Note: Discussed pt condition; will admit. Counseled Regarding: Diagnosis, Lab results, Need for admission Discharge & Departure Primary Impression: Myelodysplastic syndrome Additional Impressions: Anemia Other causes of anemia: antineoplastic chemotherapy Thrombocytopenia Pancytopenia Disposition: ADMITTED TO HOSPITAL Discharge Condition All VS Reviewed: Yes Condition: Improved Referrals: Parker Shah MD (PCP) Scribe Attestation Portions of this note were transcribed by Lucille Caba. I, Dr. Booth, personally performed the history, physical exam and medical decision-making; I reviewed and confirmed the accuracy of the information in the transcribed note. Signed by: Lucille Caba, 07/05/17. copies to: Parker Shah MD, Matthew F MD Jul 05, 2017 21:01 LUCILLE CABA Jul 05, 2017 21:10
[2017-07-05 21:04] LABS: Platelet Count 14 bil/L (150-400)
[2017-07-05] MEDS ORDERED: Acyclovir 400 mg Tablet PO ONE (21:05)
[2017-07-05] MEDS ORDERED: Ondansetron 2 mg/mL 2 mL Inj IVPUSH PRN (21:30)
[2017-07-05] MEDS ORDERED: Alum-Mag Hydrox-Simeth 30 mL Suspension PO PRN (21:30)
[2017-07-05] MEDS ORDERED: Polyethylene Glycol (PEG) 17 Gm Powder PO PRN (21:30)
--- NOTE | 2017-07-05 21:47 | PCM.HPMED ---
Subjective Date of Service Jul 05, 2017 Primary Provider: Admitting Physician: Primary Care Physician: Parker Shah MD Attending Physician: Chief Complaint: Pancytopenia History of Present Illness: 82-year-old gentleman with MDS diagnosed in 2010 whose been on chemotherapy 3 separate times with Vidaza with no small recurrent pancytopenia who presents emergency department from [facility] due to pancytopenia. The patient presented today for evaluation after completing his third round of chemotherapy started in May, and was found to be pancytopenic. Per the previous oncology notes this is a recurrent issue for the patient will on this medication and is pancytopenia is usually heavy on thrombocytopenia with intermittent neutropenia and severe anemia. He has been previously supported with Neulasta injections as well as Aranesp. The patient states that he finished his last dose on Wednesday, and around that time had a temperature of 99-100 never reached threshold of 100.4. He has continued his prophylactic levofloxacin and acyclovir. Patient denies fever, chills, nausea, vomiting, changes in bowel or bladder habits, or chest pain. However the patient does have mild shortness of breath and states that earlier today his vision was a little bit blurry while at [facility]. Patient also suffers from orthostatic hypotension which is apparently pretty severe per patient report. Of note, the patient recently underwent inguinal hernia surgery repair with Dr. Monique on June 17. In the Emergency department the patient's hemoglobin was 6.1, white count 3.5, platelets of 14. Indices showed a macrocytic anemia. He was afebrile. 2 units of PRBCs and a sixpack of platelets were ordered per ED with orders for nurse check transfused. Review of Systems: Complete review of systems performed; pertinent positives and negatives per history of present illness, all other systems reviewed and are negative Allergies Coded Allergies: No Known Allergies (Verified Allergy, Unknown, 07/05/17) Uncoded Allergies: Environmental allergies (Allergy, Mild, 06/14/08) Home Medications Acyclovir (Acyclovir) 400 Mg Tablet 400 MG PO BID Calcium Carbonate (Calcium) 600 Mg Tablet 600 MG PO DAILY Cholecalciferol (Vitamin D3) (Vitamin D3) 5,000 Unit Tablet 5,400 UNIT PO DAILY Levofloxacin (Levofloxacin) 500 Mg Tablet 500 MG PO DAILY Loratadine (Claritin) 10 Mg Capsule 10 MG PO DAILY Pregabalin (Lyrica) 75 Mg Capsule 75 MG PO BID Acetaminophen (Acetaminophen) 325 Mg Tablet 325 MG PO Q4H PRN PRN For Pain Polyethylene Glycol 3350 (Miralax) 17 Gm Powd.pack 17 GM PO PRN PRN PRN For Constipation Psyllium Husk/Ca Carbonate (Metamucil Plus Calcium Capsule) 1 Each Capsule 1 EACH PO DAILY PRN PRN For Constipation PMH Myelodysplastic syndrome Chronic pancytopenia Neuropathy Surgical History Inguinal hernia surgery in May 2017 Family History Father of metastatic prostate cancer Social History Hx Alcohol Use: No Hx Substance Use: No Hx Tobacco Use: No Smoking Status: Never Smoker Living Arrangement: with Family Exam Vital Signs Vital Sign - Last Date Time Temp Pulse Resp B/P Pulse Ox O2 Delivery O2 Flow Rate FiO2 07/05/17 20:34 91 21 122/47 98 Room Air 07/05/17 18:50 36.9 Exam General: Chronically ill appearing age appropriate male with mild SOB HEENT: PERRLA, EOMI, nonicteric, membranes moist Lymph: No lymphadenopathy Cardio: Regular rate and rhythm 2/6 murmur heard best over the left lower sternal border Respiratory: CTA bilaterally, no wheezes, no crackles Abdomen: Soft, positive bowel sounds, nontender, nondistended; Extremities: No edema, 5/5 strength, sensation decreased in both LE equal bilaterally; pulses intact Psych: Appropriate mood and affect Neuro: CN II through XII grossly intact, sensation decreased in LE; Skin: No rash Lab and Diagnostics Result Diagram: 07/05/172038 Assessment & Plan [id number] male with history of MDS on chemotherapy with history of recurrent pancytopenia who presents with anemia, leukopenia, and severe thrombocytopenia. He was sent from cancer [facility] for transfusion by Dr. Alcantara. Pancytopenia secondary to chemotherapy for MDS; present on admission; ongoing -Patient is has been undergoing treatment intermittently for MDS since 2010 -He has history of recurrent pancytopenia with larger drop in platelets; last bone marrow biopsy was reportedly 2 years ago -Current hemoglobin 6.1, white count of 3.6, and platelets of 14 -2 units PRBCs and one 6 pack of platelets ordered an ED and are beginning to transfuse -Repeat hemoglobin posttransfusion -Dr. Bateman will see patient in a.m. -Continue levofloxacin and acyclovir prophylactic doses Neuropathy secondary chemotherapy; present on admission; ongoing -Patient developed lower extremity neuropathy due to Vidaza -Continue Lyrica GERD-famotidine 20 mg by mouth twice a day Disposition: Patient has been admitted to the general medical floor under observation Discussed CODE STATUS with family who is a patient to be full code. State they will continue to discuss this. Pain Evaluation: Adequate Pain Control GI Prophylaxis: H2 javon VTE Prophylaxis Indicated: Contraindicated VTE Mechanical Devices: Intermittant Pneumatic CD Resuscitation Status: CPR: Attempt Resuscitation Attending Statement The patient was seen and examined together with Dr. Mcleod on 07/05 and I agree with the history, exam and plan as outlined in the note above. Aristides Mcleod DO Jul 05, 2017 21:47 Zhou Callahan MD Jul 06, 2017 07:01
[2017-07-05 22:00] VITALS: BP 104/50; PULSE 78; RESP 17; O2SAT 98
[2017-07-06] VITALS (13 sets, daily range): BP systolic 96–117; BP diastolic 48–57; PULSE 81–90; RESP 15–24; O2SAT 98–99
--- NOTE | 2017-07-06 00:23 | PCM.ADCARE ---
Advance Care Planning Note Purpose of Encounter: Active Diagnoses: Myelodysplastic Syndrome on chemotherapy Chronic pancytopenia Neuropathy These active diagnoses are sufficient risk that focused discussion on advance car planning is indicated in order to allow the patient to thoughtfully consider personal goals of care and if situations arise that prevent the ability to personally give input to insure appropriate representation of their personal desires through documentation or informed surrogate decision makers Parties in Attendance: , daughter, patient and me Decisional Capacity: Good Goals of Care Determinations: I reviewed his MDS and pancytopenia diagnosis and his desires for ongoing aggressive care, including potential intubation and mechanical ventilation as well as CPR. Also discussed who would speak on his behalf should he be unable to do so, she states his has Power of [employer] Model Maker He understands her conditions carry poor prognosis with no good treatment options available but he would wanna fight it for now but no prolonged life support. CODE STATUS: FULL CODE Time Spent Adv.Care Planning: Total time spent [id number] in education and discussion directly related to Advance Care Plannin minutes Zhou Callahan MD Jul 06, 2017 00:23
--- NOTE | 2017-07-06 01:39 | NUR ---
Arrival to Room 1015 Patient arrived to room 1015 at 2153 via [facility], accompanied by ED staff, , and daughter. Patient was able to transfer to bed by walking with nurse assistance. Patient was cooperative with assessment questions. Patient slightly hypotensive and febrile. Patient has no complaints of pain. Patient has 2 units of PRBC ordered and 1 unit of platelets. First unit of PRBC started on 0000. in room with patient. Call light is within reach. Care continues
--- NOTE | 2017-07-06 07:34 | NUR ---
Nausea/Vomiting During the administration of platelets , patient became nauseated and had a small amount of emesis. Ondansetron 4mg IVP administered. Patient stated the nausea could have originated from the glass of cranberry juice cocktail. Frequent rounding continues.
--- NOTE | 2017-07-06 08:39 | PCM.PNMED ---
Subjective Date of Service Jul 06, 2017 Subjective Reports nausea and vomiting last night but says feels "fine" this morning. Denies any other new issues/complaints Exam Vital Signs Vital Sign - Last Date Time Temp Pulse Resp B/P Pulse Ox O2 Delivery O2 Flow Rate FiO2 07/06/17 06:15 36.6 85 24 103/52 07/05/17 22:00 98 Room Air Intake and Output 07/05/17 07/05/17 07/06/17 Cumulative From/Thru 15:00 23:00 07:00 07/05/17 17:04 - 07/06/17 05:50 Intake Total 1450 ml 1450 ml Output Total 300 ml 300 ml Balance 1150 ml 1150 ml Intake Oral 400 ml 400 ml IV Total 750 ml 750 ml Platelets 300 ml 300 ml Output Urine Total 300 ml 300 ml # Bowel Movements 0 0 General: Alert, Oriented X3, Cooperative, No Acute Distress Head: Normal Eyes: PERRLA, EOMI, Scleral Anicteric Nose: Mucous Membr Moist/[place] Mouth: Mucous Membr Moist/[place] Neck: Supple Chest & Lungs: Chest Wall Normal, Clear to auscultation & percussion Cardiovascular: Regular Rate/Rhythm Pulses: NL carotid, radial, femoral, DP, PT Abdomen: Non-tender, Non-distended, Normoactive bowel tones, Soft Extremities: No cyanosis/clubbing/edma bilat Neurological: Grossly Neurologically Intact, Normal Speech Additional Information: Psych: calm, appropriate IVs and Medications Medications Reviewed: Medications were reviewed in detail Lab and Diagnostics Result Diagram: 07/05/172038 Assessment & Plan 82-year-old male with history of MDS on chemotherapy with history of recurrent pancytopenia who presents with anemia, leukopenia, and severe thrombocytopenia. He was sent from cancer care [place] for transfusion by Dr. Alcantara. # Acute pancytopenia likely secondary to chemotherapy for MDS; present on admission; ongoing - Patient is has been undergoing treatment intermittently for MDS since 2010. Last bone marrow biopsy was reportedly 2 years ago - 2 units PRBCs and one 6 pack of platelets ordered an ED and are being transfused - Repeat labs - Will followup with further recommendations by oncology consult. # Acute low grade fever, ongoing - Patient says low grade fever started few days ago although he was afebrile on presentation to ED - Unknown source at this time - Initiate fever workup including UA, CXR, Blood cultures - Continue home dose Levofloxacin and Acyclovir prophylactic doses # Chronic neuropathy secondary chemotherapy; present on admission. Stable. - Continue Lyrica # GERD. Stable. - Continue famotidine 20 mg by mouth twice a day Dispo: 1-2 days pending improved pancytopenia and fever workup GI Prophylaxis: H2 javon VTE Mechanical Devices: Intermittant Pneumatic CD Resuscitation Status: CPR: Attempt Resuscitation Jem Carmichael Jul 06, 2017 08:39
[2017-07-06 09:30] LABS: COLOR,URINE DARK YELLOW (YELLOW)
[2017-07-06 09:31] LABS: APPEARANCE,URINE HAZY (CLEAR,HAZY); OCCULT BLOOD,URINE MODERATE (NEGATIVE); UROBILINOGEN,URINE NORMAL (NORMAL)
--- NOTE | 2017-07-06 09:46 | NUR ---
Blood / Off Unit Pt tolerated 2nd unit PRBC, continues to have hypotension, was asymptomatic with getting OOB to for Xray. Blood completed at 0943. IV SL for Xray, A&Ox3, Stable; will have STAT H&H post infusion upon pt return to unit. Off unit to Xray at 0945. Await pt return.
[2017-07-06] MEDS: Acyclovir 400 mg Tablet PO SCH ×2 (10:48→21:01)
[2017-07-06] MEDS: levoFLOXacin 500 mg Tablet PO SCH (10:49)
--- NOTE | 2017-07-06 12:01 | NUR ---
Case Management: [facility] delivered and explained to spouse at bedside. Signed original placed in chart. Copy left at bedside. Flores Dunham RN
[2017-07-06 12:28] LABS: BASOPHILS % (AUTO) 0.7 % (0-3); EOSINOPHILS % (AUTO) 0.8 % (0-5); MONOCYTES % (AUTO) 15.1 % (4-12); Mean Corpuscular Hemoglobin 34.2 pg (27.0-35.0); Mean Corpuscular Volume 103.2 fL (81-100); NEUTROPHILS % (AUTO) 54.3 % (40-74)
[2017-07-06 12:49] LABS: Magnesium 1.9 mg/dL (1.6-2.6)
[2017-07-06 12:53] LABS: INR 1.14 ratio
[2017-07-06 13:31] LABS: Platelet Count 25 bil/L (150-400)
[2017-07-06] MEDS ORDERED: Hydrocortisone 50 mg/mL 2 mL Inj IVPUSH ONE (14:15)
--- NOTE | 2017-07-06 14:28 | NUR ---
NUTRITION ASSESSMENT: ASSESS: 82YO M admit with h/o MDS on chemo therapy with recurrent pancytopenia, anemia; receiving transfusions, low grade fever. Fair po intake. PMHX: MDS, chemo therapy DIET: General. PO 25-100% x 2 meals. LABS: Alb 3.0,BUN 41, Na 133 MEDS: Reviewed GI: WEIGHT: 79.55kg BMI: 23.8 ; 4% weight loss x 4mos. EST.NEEDS: 1842-6479 kcal, 80-120g pro (25-30kcal/kg;1.0-1.5g/kg pro) NUTRITION DIAGNOSIS: (1) No diagnosis at this time. INTERVENTION: (1) Monitor po intake, include supplements BID if po intake 50% or <. MONITOR/EVALUATE: PO intake, lab values. F/U per moderate risk.
--- NOTE | 2017-07-06 14:31 | NUR ---
Social Work: Initial Assessment/Readiness for D/C/Multidisciplinary Rounds D: EMR reviewed. Please see Initial Assessment linked to this note for more information. Pt is a 82 year old male admitted [place] for anemia, thrombocytopenia per H&P. Pt's insurance is [facility]. PCP is Parker Shah MD. Pt discussed in multidisciplinary rounds, no SW needs identified in rounds. Pt is likely to discharge home, no needs. SW met with pt and at bedside to conduct initial assessment. Pt was alert and oriented x3. SW explained role and wrote phone number on white board. Pt and declined [facility] Discharge Planning Checklist as they already have one from a prior admission. SW encouraged pt to contact with any discharge questions or concerns. Pt's designated d/c planning contact is Antonia Vanegas, . Pt lives at home with his spouse in [place]. Pt receives assistance with some ADLs such as bathing, driving, chores, meals, and medications. Pt's is his caregiver and support system at home. Pt's home is appropriately equipped with grab bars and AD for safety. Pt uses a walker at baseline. Pt does not drive. Pt has history with Eboni HALL RN PT. Pt has no SNF history. Pt has no LTC or VA benefits. Pt has DPOA on file. Pt's and daughter are DPOA. Pt is likely to d/c home with to transport via POV. SW will continue to follow. A: Pt who receives assistance at baseline from his P: Pt anticipated to discharge home with to transport via POV. No SW needs identified, no MD orders received at this time. SW will continue to follow for needs until time of discharge. ESMER Trejo Addendum: 07/06/17 at 1436 by MACY MAX Amended: Links added.
--- NOTE | 2017-07-06 17:11 | DRSVH ---
PROCEDURE: X-RAY CHEST, TWO VIEWS ([id number]) INDICATIONS: fever TECHNIQUE: 2 views of the chest were acquired. COMPARISON: [facility], CT, CT ABD PELVIS W CON, 06/02/2017, 23:11. [facility], CR, CHEST 2VW, 06/15/2013, 11:19. FINDINGS: Surgical changes and devices: None. Lungs and pleura: No pleural effusions or pneumothorax. Lung volumes are low on patchy bibasilar ai rspace opacities present. Mediastinum: Mediastinal contours are normal. Heart size is normal. Bones and chest wall: No suspicious bony abnormalities. Soft tissues appear unremarkable. IMPRESSION: Bibasilar atelectasis versus aspiration or pneumonia. Correlate clinically. Dictated by: Nima PEARSON Interpreted: Fani Weber MD on 07/06/2017 at 11:12 Approved by: Fani Weber M.D. on 07/06/2017 at 17:09
--- NOTE | 2017-07-06 17:39 | CCS NOTE ---
[facility] [address], [address] [address] MEDICAL ONCOLOGY OFFICE NOTE PATIENT: SCOTT HILL : 1935 MR#: [id number] DATE: 07/05/2017 JOB ID: [id number] DATE: 07/06/2017 SUBJECTIVE: The patient was admitted from our clinic on July 05, yesterday, due to severity of his cytopenia and severe weakness. For details, please refer to my office note of yesterday. His hemoglobin was 6.1 and platelet count 14 and he is being managed for severe myelodysplastic syndrome for many years. He has been transfused overnight with 2 units of packed red cells and 1 unit of platelets. He is about to receive the 3rd unit of packed red cells. His hemoglobin this morning was 7.5 after completion of the 2nd unit. His platelets have improved to 25 from 14 yesterday. He had an episode of a borderline temperature of 38.1 at 3 a.m. yesterday, which might have been due to the blood transfusion as he was not premedicated. He usually is premedicated with Tylenol, Benadryl, and low-dose hydrocortisone in the outpatient setting. Blood cultures have been drawn and a chest x-ray. Has been done as well. The patient currently does not have any fever and his overall status is not much changed. His blood pressure is around 100 systolic over 51. He is pale. No edema. ASSESSMENT: An 82-year-old pleasant gentleman with longstanding history of myelodysplastic syndrome (MDS) and worsening pancytopenia. He had his last course of Vidaza injections daily for five days last week and had an unusually severe anemia and thrombocytopenia when he came in on Wednesday to the clinic for Neulasta injection. He did receive his Neulasta but because of these findings we asked him to be admitted and he has received overnight the above-mentioned transfusion. I think that the low-grade temperature of 38.1 he had in the middle of the night might have been related to the transfusion rather than infectious. He is getting the 3rd unit of blood now and I ordered some Tylenol and low-dose IV Benadryl and hydrocortisone 20 mg as premedication to be started with the last unit of blood. His usual hemoglobin is around 8 and therefore I do not think any further packed red cells are required at this point. I spoke with Dr. Carmichael that the patient could be at their discretion eventually discharged either later this evening, depending on how the patient feels, or tomorrow. I did talk to the patient about the fact that his worsening cytopenia might be a sign of his MDS progressing further toward leukemia. He did not have any ese blasts in circulation but we might need to do a bone marrow biopsy to make an objective determination. We also talked about limits of care and he is aware that if his MDS progresses to AML we would at that point likely suggest transition to palliative care alone. However, this can be done as an outpatient.
--- NOTE | 2017-07-06 18:30 | NUR ---
PRBC #3 Pt with late labs, call to Lab re: this. Stated had to wait for 2nd unit PRBC to be completed prior to drawing labs. Lab up to draw labs post completion of blood products. H&H 7.5 and 22.6 - 3rd unit infused. Pt tolerated without issue. Dr. Alcantara present just prior to start of infusion and ordered premedications d/t pt stating nausea at 0300 while blood products were infusing. Pt hopeful to dc in AM, stating, "one of the few times I actually feel good enough to go home." Encouraged CDB d/t xray results. Pt and understanding. IV currently SL. Care continues. Addendum: 07/06/17 at 1834 by ALEK COBURN RN Per Dr. Alcantara, pt baseline Hemoglobin at 8 (per pt, 8.2) Pt also stating PLT typically around 20.
--- NOTE | 2017-07-07 00:18 | NUR ---
Activity Patient alert and oriented during initial assessment. No complaints of pain. Patient states that his appetite was decreased for most of the day but dinner was pleasing to him. Patient reminded to use call light when ambulating to bathroom since is not in room. VSS. Call light is within reach. Hourly rounding continues.
--- NOTE | 2017-07-07 00:32 | NUR ---
Note re: PRBC -Unit 2 from 07/06 The second unit of PRBC that was administered on 07/06 was confirmed with Pasquale Pereira RN.
[2017-07-07 04:50] VITALS: BP 117/54; PULSE 79; RESP 16; O2SAT 98
[2017-07-07 07:16] LABS: BASOPHILS % (AUTO) 0.6 % (0-3); EOSINOPHILS % (AUTO) 3.7 % (0-5); MONOCYTES % (AUTO) 14.4 % (4-12); NEUTROPHILS % (AUTO) 52.7 % (40-74)
[2017-07-07 07:24] LABS: Magnesium 1.9 mg/dL (1.6-2.6)
[2017-07-07] MEDS: Acyclovir 400 mg Tablet PO SCH (08:04)
[2017-07-07] MEDS: levoFLOXacin 500 mg Tablet PO SCH (08:04)
[2017-07-07 09:00] LABS: Platelet Count 20 bil/L (150-400)
[2017-07-07 09:42] VITALS: BP 116/53; PULSE 85; RESP 18; O2SAT 96
--- NOTE | 2017-07-07 10:29 | NUR ---
Social Work- Discharge/Multidisciplinary Rounds Data: EMR reviewed. Pt is on day 2 of hospitalization for anemia, thrombocytopenia. Pt discussed in multidisciplinary rounds, pt to discharge today. Pt has excellent support at home, appropriate AD and support from . Pt to d/c home with his to transport via POV. No discharge needs identified, no SW orders received. Assessment: Pt who receives assistance at home at baseline Plan: Pt to d/c home with his to transport via POV. Pt has appropriate support and AD. No discharge needs identified. Dania Mac MSW
--- NOTE | 2017-07-07 10:31 | PCM.DIMED ---
Discharge Instructions Date of Service Jul 07, 2017 Dates of Hospitalization Jul 05, 2017 at 21:33 Discharge Diagnosis Discharge Diagnosis # Acute pancytopenia likely secondary to chemotherapy for MDS; present on admission. Improved - Post packed red blood cell (PRBC) and platelet transfusion # Acute low grade fever, likely transfusion reaction. Resolved. # Chronic neuropathy secondary chemotherapy; present on admission. Stable. # GERD. Stable. Medication Instructions Additional med instructions Resume home medications as before Diet Discharge Diet: No restrictions Activity Discharge Activity: No restrictions Call your provider Call your provider for: Fever or Chills, Shortness of breath, Bleeding, Chest pain, Excessive diarrhea Patient Instructions Patient Instructions Seek immediate medical attention if any new or worsening signs or symptoms occur. Follow-up plan 1. Followup with primary care provider and oncologist as previously planned. Follow-up Provider: Parker Shah MD Provider: Jay Bailey MD, Masoud Jul 07, 2017 10:31
--- NOTE | 2017-07-07 10:36 | PCM.DC.MED ---
Discharge Summary Date of Service Jul 07, 2017 Dates of Hospitalization Date of Hospital Admission Jul 05, 2017 at 21:33 Date of Discharge: Jul 07, 2017 Providers: Admitting Physician: Zhou Callahan MD Primary Care Physician: Parker Shah MD Attending Physician: Jem Carmichael Diagnosis at Time of Discharge Diagnosis at Time of Discharge # Acute pancytopenia likely secondary to chemotherapy for MDS; present on admission. Improved - Post packed red blood cell (PRBC) and platelet transfusion # Acute low grade fever, likely transfusion reaction. Resolved. # Chronic neuropathy secondary chemotherapy; present on admission. Stable. # GERD. Stable. Consultations 1. Oncology (Dr. Alcantara) Procedures XRay, CTs & MRIs Date of Service: 07/06/17 0840 PROCEDURE: X-RAY CHEST, TWO VIEWS ([id number]) IMPRESSION: Bibasilar atelectasis versus aspiration or pneumonia. Correlate clinically. Dictated by: Nima Balbuena RRA Interpreted: Fani Weber MD on 07/06/2017 at 11: 12 Approved by: Fani Weber M.D. on 07/06/2017 at 17:09 Brief History As noted in H&P by Dr. Mcleod: 82-year-old gentleman with MDS diagnosed in 2010 whose been on chemotherapy 3 separate times with Vidaza with no small recurrent pancytopenia who presents emergency department from [facility] due to pancytopenia. The patient presented today for evaluation after completing his third round of chemotherapy started in May, and was found to be pancytopenic. Per the previous oncology notes this is a recurrent issue for the patient will on this medication and is pancytopenia is usually heavy on thrombocytopenia with intermittent neutropenia and severe anemia. He has been previously supported with Neulasta injections as well as Aranesp. The patient states that he finished his last dose on Wednesday, and around that time had a temperature of 99-100 never reached threshold of 100.4. He has continued his prophylactic levofloxacin and acyclovir. Patient denies fever, chills, nausea, vomiting, changes in bowel or bladder habits, or chest pain. However the patient does have mild shortness of breath and states that earlier today his vision was a little bit blurry while at [facility]. Patient also suffers from orthostatic hypotension which is apparently pretty severe per patient report. Of note, the patient recently underwent inguinal hernia surgery repair with Dr. Monique on June 17. In the Emergency department the patient's hemoglobin was 6.1, white count 3.5, platelets of 14. Indices showed a macrocytic anemia. He was afebrile. 2 units of PRBCs and a sixpack of platelets were ordered per ED with orders for nurse check transfused. Hospital Course # Acute pancytopenia likely secondary to chemotherapy for MDS; present on admission; ongoing - Patient is has been undergoing treatment intermittently for MDS since 2010. Last bone marrow biopsy was reportedly 2 years ago - 2 units PRBCs and one 6 pack of platelets ordered an ED and transfused - Repeat labs show improved pancytopenia # Acute low grade fever not present on admission and noted during transfusion - CXR suggestive of atelectasis vs pneumonia. However, given lack of pulmonary symptoms suspect findings most likely atelectasis and low grade temps due to transfusion reaction. - Continue home dose Levofloxacin and Acyclovir prophylactic doses # Chronic neuropathy secondary chemotherapy; present on admission. Stable. - Continue Lyrica # GERD. Stable. - Continue famotidine 20 mg by mouth twice a day Exam Vital Signs (Last) Date Time Temp Pulse Resp B/P Pulse Ox O2 Delivery O2 Flow Rate FiO2 07/07/17 09:42 36.7 85 18 116/53 96 Room Air Exam Lungs: CTA bilat CV: RRR Abd: soft, nd, nt, +bs Test 07/05/17 19:00 07/06/17 09:00 07/06/17 12:05 07/07/17 06:02 Hold Urine Received (Received) Urine Color Dark yellow (YELLOW) Urine Appearance Hazy (CLEAR,HAZY) Urine pH 5.0 (5.0-8.0) Urine Specific [place] 1.020 (1.003-1.035) Urine Protein 30mg/dL (NEG,TRACE) Urine Glucose (UA) Negativemg/dL (NEGATIVE) Urine Ketones Negativemg/dL (NEGATIVE) Urine Occult Blood Moderate (NEGATIVE) Urine Nitrite Negative (NEGATIVE) Urine Bilirubin Negative (NEGATIVE) Urine Urobilinogen Normalmg/dL (NORMAL) Urine Leukocyte Esterase Negative (NEGATIVE) Urine RBC 0-2/hpf (0-2) Urine WBC 0-5/hpf (0-5) Urine Epithelial Cells Occasional/hpf (NONE-MOD) Urine Crystals Amorphous urates (NONE Urine Bacteria None/hpf (NONE-FEW) Urine Hyaline Casts None/lpf (NONE) Urine Granular Casts Occasional (NONE SEEN) Urine Waxy Casts None seen (NONE SEEN) Urine Red Blood Cell Casts None seen (NONE SEEN) Urine White Blood Cell Casts None seen (NONE SEEN) Urine Mucus Present (None Seen) Urine Trichomonas None seen (NONE SEEN) Urine Yeast None (NONE SEEN) Urinalysis Comment None Urine Culture Reflexed Not indicated Prothrombin Time 12.2sec (8.1-12.5) Prothromb Time International Ratio 1.14ratio Activated Partial Thromboplast Time 33.2sec (22.8-33.0) Total Bilirubin 2.9mg/dL (0.0-1.2) Aspartate Amino Transf (AST/SGOT) 20U/L (0-50) Alanine Aminotransferase (ALT/SGPT) 16U/L (0-44) Alkaline Phosphatase 174U/L (25-160) Total Protein 5.4g/dL (6.4-8.4) Albumin 3.0g/dL (3.4-5.0) White Blood Count 10.4th/mm3 (3.8-10.1) Red Blood Count 2.27mil/mm3 (4.40-5.80) Hemoglobin 7.5g/dL (13.8-17.2) Hematocrit 22.7% (41.0-50.0) Mean Corpuscular Volume 100.0fL (81-100) Mean Corpuscular Hemoglobin 33.0pg (27.0-35.0) Mean Corpuscular Hemoglobin Concent 33.0% (32.0-37.0) Red Cell Distribution Width 24.8% (12.3-15.4) Platelet Count 20bil/L (150-400) Neutrophils (%) (Auto) 52.7% (40-74) Lymphocytes (%) (Auto) 12.2% (14-46) Monocytes (%) (Auto) 14.4% (4-12) Eosinophils (%) (Auto) 3.7% (0-5) Basophils (%) (Auto) 0.6% (0-3) Sodium Level 135mEq/L (134-144) Potassium Level 4.4mEq/L (3.5-5.2) Chloride Level 98mEq/L (97-108) Carbon Dioxide Level 19mmol/L (18-29) Blood Urea Nitrogen 45mg/dL (8-27) Creatinine 1.00mg/dL (0.76-1.27) Estimat Glomerular Filtration Rate 76mL/min (>59) Glucose Level 122mg/dL (60-99) Calcium Level 8.1mg/dL (8.5-10.1) Magnesium Level 1.9mg/dL (1.6-2.6) Discharge Medications Discharge Medications Acyclovir (Acyclovir) 400 Mg Tablet 400 MG PO BID (Reported) Calcium Carbonate (Calcium) 600 Mg Tablet 600 MG PO DAILY (Reported) Cholecalciferol (Vitamin D3) (Vitamin D3) 5,000 Unit Tablet 5,400 UNIT PO DAILY (Reported) Levofloxacin (Levofloxacin) 500 Mg Tablet 500 MG PO DAILY (Reported) Loratadine (Claritin) 10 Mg Capsule 10 MG PO DAILY (Reported) Pregabalin (Lyrica) 75 Mg Capsule 75 MG PO BID (Reported) As needed Acetaminophen (Acetaminophen) 325 Mg Tablet 325 MG PO Q4H PRN PRN For Pain ( Reported) Polyethylene Glycol 3350 (Miralax) 17 Gm Powd.pack 17 GM PO PRN PRN PRN For Constipation (Reported) Psyllium Husk/Ca Carbonate (Metamucil Plus Calcium Capsule) 1 Each Capsule 1 EACH PO DAILY PRN PRN For Constipation (Reported) Additional med instructions Resume home medications as before Followup Plan Disposition: Home Follow-up plan 1. Followup with primary care provider and oncologist as previously planned. Discharge Diet: No restrictions Discharge Activity: No restrictions Patient Instructions Seek immediate medical attention if any new or worsening signs or symptoms occur. Follow-up Provider: Parker Shah MD Provider: Jay Bailey MD Time spent 30 min copies to: Jay Bailey MD; Parker Shah MD, Masoud Jul 07, 2017 10:36
--- NOTE | 2017-07-07 12:45 | NUR ---
Discharge Pt discharged to home with at 1230. A&ox3, QIU, IV dcd intact, VSS, Labs back to pt baseline and cleared by Dr. Alcantara who plans see pt on Wednesday, CareNotes provided on dc dx, No questions/concerns left unanswered. Pt left unit via w/c to vehicle. All personal beloningings in hand, No scripts given.
--- NOTE | 2017-07-07 18:27 | CCS NOTE ---
[facility] [address], [address] [address] MEDICAL ONCOLOGY OFFICE NOTE PATIENT: SCOTT HILL : 1935 MR#: [id number] DATE: 07/05/2017 JOB ID: [id number] DATE: 07/07/2017 INPATIENT MEDICAL ONCOLOGY NOTE: I saw the patient at bedside today with his present. He appears somewhat improved in terms of bowel severe weakness but still obviously struggles with weakness and exhaustion. He has had 3 units of packed RBCs and 1 unit of platelets with this admission. His hemoglobin has not much changed since yesterday; it is still 7.5. Platelets are 20. His BUN is somewhat elevated in the lower 40s which is not unusual readings. His creatinine remains normal. He did not have any issues yesterday with his transfusion and was premedicated and has remained afebrile. His bilirubin is elevated off and on chronically, between 1-2.5, and there has been no obvious etiology for this. OBJECTIVE: On exam, he is weak. Abdomen is soft. No peripheral edema. ASSESSMENT: An 82-year-old gentleman with longstanding myelodysplastic syndrome with worsening pancytopenia admitted for transfusion support due to urgency and severity of the anemia. His hemoglobin has come up to 7.5 and has not changed much. I wonder whether he could have a concomitant GI bleed. The main reason being the fact that at this time his anemia was worse than his usual and his BUN is disproportionately elevated. He denies any black stools or any signs of bleeding in his bowel movement. I suggested that he empirically start taking omeprazole 20 mg in the morning. He is being discharged today and I will see him on Wednesday morning in the clinic on July 09 for the support before the weekend. We had a good conversation with him and his today regarding goals of care and we reached the conclusion to have an informational visit with hospice as an outpatient and that anytime he decides that he would like to stop treatments he can certainly transition to hospice, or if there is evidence of leukemic transformation then I would not recommend further therapy since the prognosis would be a very poor in that setting.
== END 2017-07-07 12:30 | disposition home or self-care (01) | DRG 809 ==
LOC: SED 16:20 → OSC 21:33 → OBSVTOIN 21:33
PROVIDERS: ADMIT Hospitalist; ATTEND Hospitalist
PROC: 30233N1 Transfusion of Nonautologous Red Blood Cells into Peripheral Vein, Percutaneous Approach (ICD-10-PCS; 2017-07-05)
PROC: 30233R1 Transfusion of Nonautologous Platelets into Peripheral Vein, Percutaneous Approach (ICD-10-PCS; principal; 2017-07-06)
PROC: 30233N1 Transfusion of Nonautologous Red Blood Cells into Peripheral Vein, Percutaneous Approach (ICD-10-PCS; 2017-07-06)
DX: D61.810 Antineoplastic chemotherapy induced pancytopenia (principal); D46.C Myelodysplastic syndrome with isolated del(5q) chromosomal abnormality; G62.9 Polyneuropathy, unspecified; T45.1X5A Adverse effect of antineoplastic and immunosuppressive drugs, initial encounter; K21.9 Gastro-esophageal reflux disease without esophagitis; R50.84 Febrile nonhemolytic transfusion reaction